=== PATIENT | female | born 1960 | race Caucasian/White ===

== ENCOUNTER 2020-07-19 09:30 | Emergency (ER) | payer BC ==
[~2020-07-19] VITALS: Ht 165.1 cm; Wt 72.6 kg
--- NOTE | 2020-07-19 09:49 | NUR ---
PT WAS EVALUATED BY DR BAKER. PT IS IN ROOM #2A.
[2020-07-19] MEDS ORDERED: LIDOCAINE HCL 2% 20 ML VIAL IJ ONE (10:45)
--- NOTE | 2020-07-19 10:47 | NUR ---
PT WAS D/C'd TO HOME . D/C INSTRUCTIONS GIVEN TO THE PT BY DR BAKER.
[2020-07-19 10:48] VITALS: BP 133/72
== END 2020-07-19 10:48 | disposition home or self-care (01) ==
LOC: ER 09:30
DX: S61.215A Laceration without foreign body of left ring finger without damage to nail, initial encounter (principal); W26.0XXA Contact with knife, initial encounter; Y93.G1 Activity, food preparation and clean up; Y92.89 Other specified places as the place of occurrence of the external cause
CPT/HCPCS: 12001; 99282; J3490; A4217; A4663

== ENCOUNTER 2020-07-21 11:30 | Emergency (ER) | payer BC ==
[~2020-07-21] VITALS: Ht 165.1 cm; Wt 72.6 kg
--- NOTE | 2020-07-21 11:40 | NUR ---
at bedside for assessment
[2020-07-21] MEDS ORDERED: NEOMY/BACITRA/POLYMYXIN B OINT UD PACKET TP ONE ×2 (11:45→11:47)
--- NOTE | 2020-07-21 11:52 | NUR ---
Patient discharged to home in stable condition. no signs of acute distress noted, extra gauze and tape given to cover laceration. Written and verbal after care instructions given. Patient verbalizes understanding of instructions. Stressed follow up or return to ER for worsening s/s.
[2020-07-21 12:11] VITALS: BP 137/77
== END 2020-07-21 11:52 | disposition home or self-care (01) ==
LOC: ER 11:30
DX: S61.215D Laceration without foreign body of left ring finger without damage to nail, subsequent encounter (principal); X58.XXXD Exposure to other specified factors, subsequent encounter
CPT/HCPCS: A4663

== ENCOUNTER 2020-07-29 14:29 | Emergency (ER) | payer BC ==
[~2020-07-29] VITALS: Ht 165.1 cm; Wt 72.6 kg
[2020-07-29] MEDS ORDERED: SULF1TAB48 PO (14:41)
--- NOTE | 2020-07-29 14:45 | NUR ---
Dr Last at the bedside. Sutures removed from Lt hand/finger. No bleeding noted.
[2020-07-29 14:56] VITALS: BP 150/94
--- NOTE | 2020-07-29 14:57 | NUR ---
Patient discharged to home in stable condition. Written and verbal after care instructions given. Patient verbalizes understanding of instructions. Stressed follow up or return to ER for worsening s/s.
== END 2020-07-29 14:58 | disposition home or self-care (01) ==
LOC: ER 14:30
DX: S61.412D Laceration without foreign body of left hand, subsequent encounter (principal); L03.114 Cellulitis of left upper limb; W26.0XXD Contact with knife, subsequent encounter
CPT/HCPCS: A4663